=== PATIENT | male | born 1965 | race Caucasian/White ===

== ENCOUNTER 2020-02-27 16:01 | Inpatient (IN) | payer OTHER, SELFPAY ==
[2020-02-27 16:01] VITALS: BP 154/104; PULSE 124; RESP 18; TEMP 36.7; O2SAT 97; BMI 24.3
[2020-02-27 16:33] LABS: Absolute Lymphocyte Count 0.68 X10^3/uL (0.83-4.51); Basophil# 0.02 X10^3/uL; Basophil% 0.2 % (0-1); Eosinophil# 0.01 X10^3/uL; Eosinophils% 0.1 % (0-5); Hematocrit 50.8 % (40-54); Hemoglobin 17.1 g/dL (13.0-16.5); Lymphocyte # 0.68 X10^3/ul (4.0); Lymphocyte % 8.2 % (19-41); Mean Corp Hgb Conc 33.7 g/dL (32-36); Mean Corpuscular Hgb 34.5 pg (27.0-32.0); Mean Corpuscular Volume 102.6 fL (80-94); Mean Platelet Vol. 9.9 fl (6.2-12.0); Monocyte# 0.53 X10^3/uL; Monocyte% 6.4 % (0-10); NRBC Flagged by Analyzer 0 % (0-5); Neutrophil # 7.04 X10^3/uL (2.7-7.7); Neutrophil % 84.9 % (47-70); Platelet Count 302 K/mm3 (150-450); RBC Distribution Width CV 11.9 % (11.6-14.6); RBC Distribution Width SD 45.3 fl (35.1-43.9); Red Blood Count 4.95 M/mm3 (4.6-6.2); White Blood Count 8.3 K/mm3 (4.4-11.0)
[2020-02-27 16:44] LABS: Anion Gap 6 (5-15); BUN 15 mg/dL (7-18); BUN/Creat Ratio 16.6 RATIO (10-20); Calcium,Total 10.2 mg/dL (8.5-10.1); Chloride 102 mmol/L (98-107); EST Glomerular Filtration Rate 93 mL/min (>60); Est Glom Filt Rate - Afr Amer 113 mL/min (>60); Estimated Creatinine Clearance 93.83 ml/min; Glucose 117 mg/dL (74-106); Potassium 3.7 mmol/L (3.5-5.1); Sodium Level 134 mmol/L (136-145)
--- NOTE | 2020-02-27 17:06 | CT_ITS ---
STUDY: CT ABDOMEN AND PELVIS WITH CONTRAST REASON FOR EXAM: Male, 55 years old. LLQ ABD PAIN W/ N/V X 2 DAYS. FEVER, COUGH, SOB. RADIATION DOSAGE (If Supplied By Facility): CTDIvol = ( 10.925 ) mGy, DLP = ( 473.23 ) mGycm TECHNIQUE: Transaxial images were obtained from the dome of the diaphragm to the symphysis pubis without oral contrast. IV 100mL Isovue-370 was administered. Sagittal and coronal images were reconstructed. Individualized dose optimization techniques were used for this CT. COMPARISON: None. FINDINGS: There is minor interstitial thickening in both lung bases.. The visualized portions of the heart are within normal limits. Normal liver. Normal gallbladder and extrahepatic biliary system. Normal spleen. Normal pancreas. Normal bilateral adrenal glands. Normal right kidney. Normal left kidney. Diffusely distended fluid-filled stomach. Multiple distended loops of proximal and mid small bowel containing fluid with fecalization in the distal small bowel proximal to the transition point to more normal caliber loops of bowel in the right lower quadrant raising suspicion for bowel obstruction. Minor diverticular changes of the colon without evidence for acute diverticulitis.. No evidence for acute appendicitis Normal abdominal aorta. Normal inferior vena cava. Normal retroperitoneum. Nonspecific thickening of the younger of the bladder in association with mildly prominent prostate Normal abdominal wall. Lumbar spine demonstrates moderate spondylosis. CT/Abdomen/Pelvis W IV Cont ONLY IMPRESSION: Findings suspicious for distal small bowel obstruction. Recommend clinical correlation and follow-up Electronically Signed: Valentin Jordan MD at 18:16 EST , Service support ,
--- NOTE | 2020-02-27 17:07 | ED.DCSUM_ITS ---
History of Present Illness Chief Complaint: Abd Pain Informant: Patient Narrative: 55-year-old male presents with abdominal pain since yesterday. States it is worse in his left lower quadrant as well as upper epigastrium. States it is sharp and intermittent. States he has had a fever. Denies any nausea, vomiting, constipation, diarrhea, urinary symptoms. States he has been unable to eat over the past 2 days. Patient states that he does drink 6 beers per day. Past Medical History - Allergies and Home Meds Allergies/Adverse Reactions: Allergies No Known Allergies Allergy (Verified 02/27/20 16:01) Prior records reviewed: Yes Past Medical History: None Surgical History: - - intestine removal as a child Lives: With Family Smoking Status: Current every day smoker Alcohol: Heavy Drugs: None Review of Systems General: Reports: Fever. Denies: Chills, Sweats Eyes: Denies: Visual changes - bilaterally, Diplopia ENT: Denies: Rhinorrhea, Sore throat Cardiovascular: Denies: Chest pain, Palpitations Respiratory: Denies: Dyspnea, Cough, Dyspnea on exertion Gastrointestinal: Reports: Abdominal pain, Nausea. Denies: Vomiting, Diarrhea, Melena, Hematochezia Genitourinary: Denies: Dysuria, Hematuria, Frequency Musculoskeletal: Denies: Back pain, Extremity Pain Skin: Denies: Rash, Wounds Neurological: Denies: Headache, Weakness, Numbness Physical Exam Vital Signs/Narrative: Vital Signs Temp Pulse Resp BP Pulse Ox 02/27/20 16:01 98.1 F 124 H 18 154/104 H 97 Inital Vital Signs reviewed: Yes General: Well nourished, Well developed, No Acute Distress Head: Normocephalic, Atraumatic Eyes: Perrl, EOMI ENT: Moist mucous membranes, No rhinorrhea Neck: Supple, Nontender Cardiovascular: Regular rate, Regular rhythm, No murmurs Respiratory: No distress, CTA bilaterally, Chest nontender Abdomen: Soft, Nondistended, Normal bowel sounds, - - LLQ pain on palpation. Upper epigastric TTP. Back: Nontender, Normal Inspection Extremities: Nontender, No edema Skin: Normal color, No rash Neurological: Alert, Oriented x3, Cranial nerves II-XII grossly intact, Normal Strength, Normal Sensation Psychological: Normal affect, Normal Mood Diagnostic/Tx/Re-eval Clinical Impression(s) from Imaging Studies Abdomen/Pelvis CT 02/27/20 17:06 IMPRESSION: Findings suspicious for distal small bowel obstruction. Recommend clinical correlation and follow-up Electronically Signed: Valentin Jordan MD at 18:16 EST , Service support , KUB X-Ray 02/27/20 19:22 IMPRESSION: Nasogastric tube placement with tip in proximal gastric fundus Electronically Signed: Valentin Jordan MD at 19:56 EST , Service support , Laboratory Data 02/27/20 02/27/20 02/27/20 16:05 16:05 16:05 WBC 8.3 RBC 4.95 Hgb 17.1 H Hct 50.8 MCV 102.6 H MCH 34.5 H MCHC 33.7 RDW Std Deviation 45.3 H RDW Coeff of Dot 11.9 Plt Count 302 MPV 9.9 Immature Gran % (Auto) 0.200 Neut % (Auto) 84.9 H Lymph % (Auto) 8.2 L [place] % (Auto) 6.4 Eos % (Auto) 0.1 Baso % (Auto) 0.2 Absolute Neuts (auto) 7.0 Absolute Lymphs (auto) 0.68 L Nucleated RBC % 0 Sodium 134 L Potassium 3.7 Chloride 102 Carbon Dioxide 26.0 Anion Gap 6 BUN 15 Creatinine 0.90 Estim Creat Clear Calc 93.83 Est GFR (MDRD) Af Amer 113 Est GFR (MDRD) Non-Af 93 BUN/Creatinine Ratio 16.6 Glucose 117 H Calcium 10.2 H Lipase 62 L - Medical Decision Making Patient appears uncomfortable secondary to nausea. Lab work shows some volume depletion but otherwise no significant abnormalities. CT shows evidence of small bowel obstruction. Patient had been given pain medication, nausea medication, fluid bolus. Patient will have NG tube placed. X-ray will be done to ensure placement. Patient will be admitted to the hospitalist service. Spoke with surgeon who is agreeable with admission. Stable at time of admission. Impression: 1. SBO 2. Alcohol abuse ED Disposition - Plan for ED Patient: Disposition: Acute Care Hospital [facility]
[2020-02-27] MEDS: Ondansetron 4 MG/2 ML Vial IV (17:17)
[2020-02-27] MEDS: Morphine 4 MG/ML Syringe IV (17:18)
[2020-02-27] MEDS: 0.9% Normal Saline 1,000 ML 1000 ML IV (17:19)
[2020-02-27 17:24] VITALS: BP 140/97; PULSE 95; RESP 16; O2SAT 100
[2020-02-27 17:52] LABS: Lipase 62 U/L (73-393)
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
[2020-02-27 19:16] VITALS: BP 126/85; PULSE 110; RESP 20; O2SAT 99
--- NOTE | 2020-02-27 19:22 | RAD_ITS ---
STUDY: X-RAY - ABDOMEN/PELVIS REASON FOR EXAM: Male, 55 years old. NG PLACEMENT. TECHNIQUE: KUB COMPARISON: None. FINDINGS: Normal visualized lung bases. Mild diffuse distention of proximal small bowel and stomach There is no demonstrated free abdominal air. NG tube is noted with tip in proximal gastric fundus There is residual contrast seen within the renal collecting system bilaterally. Normal soft tissue structures. Normal visualized osseous structures. RAD/Abdomen Single View (Portable) IMPRESSION: Nasogastric tube placement with tip in proximal gastric fundus Electronically Signed: Valentin Jordan MD at 19:56 EST , Service support ,
[2020-02-27 20:05] VITALS: BMI 24.4
[2020-02-27 20:08] VITALS: BP 133/83; PULSE 89; RESP 16; TEMP 36.6; O2SAT 99
[2020-02-27 20:31] VITALS: BMI 23.6
[2020-02-27 20:37] VITALS: BP 131/98; PULSE 109; RESP 18; TEMP 36.6; O2SAT 98
[2020-02-27 21:08] LABS: Magnesium 2.1 mg/dL (1.6-2.6); Phosphorus 3.3 mg/dL (2.5-4.9)
[2020-02-27] MEDS: 0.9% Normal Saline 1,000 ML 125 ML IV (21:25)
[2020-02-27] MEDS: HYDROmorphone 0.5 MG/0.5 ML SYRINGE IV (21:25)
[2020-02-27] MEDS: 0.9% Saline Lock 10 ML Syringe IV (21:25)
[2020-02-27 22:59] VITALS: O2SAT 98
[2020-02-28 03:19] VITALS: BP 149/96; PULSE 109; RESP 18; TEMP 36.7; O2SAT 97
[2020-02-28] MEDS: 0.9% Normal Saline 1,000 ML 125 ML IV (03:23)
[2020-02-28 03:43] LABS: Bacteria 0 SEEN /hpf (None Seen); Mucous, Urine 0 SEEN /hpf (<or=2+); Red Blood Cells-Urine 0 SEEN /hpf (0-5)
[2020-02-28 03:54] LABS: Color, Urine Yellow (Yellow); Glucose, Dipstick Normal (Normal); Ketone-Dipstick 5 mg/dl (Negative); Leukocyte Esterase-Dipstick 25 /ul (Negative); Nitrite-Dipstick Negative (Negative); Occult Blood-Urine Negative /ul (Negative); Protein-Dipstick 30 mg/dl (Negative); Specific Gravity, Urine 1.015 (1.002-1.030); Urine Clarity Clear (Clear); Urine Urobilinogen Normal (Normal)
[2020-02-28 04:04] LABS: Urine Bilirubin Dipstick 1 mg/dL (Negative)
[2020-02-28 04:20] LABS: Amphetamine Urine VISTA POSITIVE (<1000 ng/mL); Barbiturate Urine VISTA NEGATIVE (< 200 ng/mL); Benzodiazepine Urine VISTA NEGATIVE (< 200 ng/mL); Cocaine Urine VISTA NEGATIVE (< 300 ng/mL); Ecstacy Urine VISTA POSITIVE (< 500 ng/mL); Methadone Urine VISTA NEGATIVE (< 300 ng/mL); PCP Urine VISTA NEGATIVE (< 25 ng/mL); THC Urine VISTA POSITIVE (< 50 ng/mL); Vista UDS pH Range 6
[2020-02-28 04:49] LABS: White Blood Cells 0-5 SEEN /hpf (0-5)
[2020-02-28 04:50] LABS: Squamous Epithelial Cells - UA 0-5 SEEN /hpf (0-5)
[2020-02-28] MEDS: HYDROmorphone 0.5 MG/0.5 ML SYRINGE IV (05:42)
[2020-02-28] MEDS: 0.9% Saline Lock 10 ML Syringe IV (05:42)
--- NOTE | 2020-02-28 05:55 | RAD_ITS ---
HISTORY: Small bowel obstruction. ADDITIONAL HISTORY: None. COMPARISON: 02/27/2020 EXAMINATION/TECHNIQUE: XR Abdomen 1 View Number of images including paperwork: 2 FINDINGS: FREE AIR: None detected. BOWEL GAS PATTERN: Multiple dilated loops of small bowel with mild decrease. Increasing gas in the colon. Findings suggest partial and/or resolving obstruction. CALCIFICATIONS: No definite urinary tract calculi. ORGANS: No evidence of organomegaly. Contrast noted within this and bladder which is trabeculated with a small diverticulum on the left. SOFT TISSUES: Unremarkable. BONES: No acute skeletal findings. Degenerative changes. LOWER CHEST: Unremarkable visible portions. DEVICES: Gastric tube tip and side-port of the stomach. RAD/Abdomen Single View (Portable) IMPRESSION: Small bowel obstruction. at 0547 Reported and signed by: Isa Dhaliwal MD Electronically Signed: Isa Dhaliwla MD at 5:46 EST Tel , Service support ,
[2020-02-28 07:27] LABS: Absolute Lymphocyte Count 0.75 X10^3/uL (0.83-4.51); Absolute Neutrophil Count 1.9 X10^3/uL (2.0-7.7); Basophil# 0.02 X10^3/uL; Basophil% 0.6 % (0-1); Eosinophil# 0.04 X10^3/uL; Eosinophils% 1.3 % (0-5); Hematocrit 47.2 % (40-54); Hemoglobin 15.9 g/dL (13.0-16.5); Lymphocyte # 0.75 X10^3/ul (4.0); Lymphocyte % 23.5 % (19-41); Mean Corp Hgb Conc 33.7 g/dL (32-36); Mean Corpuscular Hgb 35.3 pg (27.0-32.0); Mean Corpuscular Volume 104.7 fL (80-94); Mean Platelet Vol. 10.4 fl (6.2-12.0); Monocyte# 0.43 X10^3/uL; Monocyte% 13.5 % (0-10); NRBC Flagged by Analyzer 0 % (0-5); Neutrophil # 1.94 X10^3/uL (2.7-7.7); Neutrophil % 60.8 % (47-70); POSITIVE MORPHOLOGY YES; Platelet Count 268 K/mm3 (150-450); Red Blood Count 4.51 M/mm3 (4.6-6.2); White Blood Count 3.2 K/mm3 (4.4-11.0)
[2020-02-28 07:32] VITALS: O2SAT 96
[2020-02-28 07:39] LABS: ALB/GLOB Ratio 0.9 RATIO (0.9-2.4); AST(SGOT) 12 U/L (15-37); Alanine Aminotransfer ALT/SGPT 18 U/L (16-61); Albumin, Serum 3.6 g/dL (3.2-5.0); Alkaline Phosphatase 63 U/L (45-117); Anion Gap 6 (5-15); BUN 17 mg/dL (7-18); BUN/Creat Ratio 19.8 RATIO (10-20); Calcium,Total 8.7 mg/dL (8.5-10.1); Chloride 104 mmol/L (98-107); Creatinine, Serum 0.86 mg/dL (0.70-1.30); EST Glomerular Filtration Rate 99 mL/min (>60); Est Glom Filt Rate - Afr Amer 119 mL/min (>60); Estimated Creatinine Clearance 98.19 ml/min; Globulin 4.1 g/dL (2.2-4.2); Glucose 86 mg/dL (74-106); Potassium 3.8 mmol/L (3.5-5.1); Protein, Total 7.7 g/dL (6.4-8.2); Sodium Level 138 mmol/L (136-145)
[2020-02-28 07:44] LABS: Differential Indicated SCAN CRITERIA MET
[2020-02-28 08:28] VITALS: BP 130/93; PULSE 103; RESP 18; TEMP 37.2; O2SAT 98
[2020-02-28 08:39] LABS: Differential Comment SCANNED; Reactive Lymphocyte RARE
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
[2020-02-28 11:00] VITALS: BP 128/88; PULSE 74; RESP 18; TEMP 37.2; O2SAT 98
--- NOTE | 2020-02-28 11:36 | CM.UR ---
VENKATA OLIVER assessment: Face to Face with patient for initial transition planning/care coordination assessment. VENKATA OLIVER introduced self and role at [facility], pt voices understanding and consents to assessment at this time. Pt is A/Ox4 at this time and answers all questions appropriately at this time. Pt is lying in bed at this time. No distress at this time. Care providers, pharmacy, and demographics verified at this time. Presentation: Abd pain Admitting dx: SBO PCP: Dr. Jack Jessica Preferred Pharmacy: [facility]. [facility] for short term or ones needed quickly. Insurance: None currently unemployed. Wants [facility] alerted for coverage. Pres[facility] Benefit: [facility] through [facility]. Living Will/HPOA: None, declines information at this time. LNOK: Fiance Living Arrangements: Pt states lives alone in 2 story home and states no concerns at home at this time. Pt states is independent with ADL's. Transportation: Pt states drives self and states no transportation concerns at this time. DME: None. Pt states no need for any DME at this time. States if needs [facility]--[facility] HHC/SNF: Pt states no hx of HHC or SNF in the past. Goal: Home Plan: Home Rose Mary Dalton RN, CCM
--- NOTE | 2020-02-28 12:51 | CM.UR ---
Alerted Isa in bed control of vet?s admission to [facility] for SBO. [facility] time to [facility] as well as to the transfer center (bed control). The vet is currently unemployed and only has their [facility] coverage at this time. Rose Mary Dalton RN, CCM.
--- NOTE | 2020-02-28 14:03 | DCINST_ITS ---
- Discharge Diagnoses Current Active Problems: Current Active and Chronic Problems Small bowel obstruction (Acute) Tobacco use (Chronic) Seizure disorder (Chronic) Alcohol abuse (Chronic) You will use the following diet at home:: No restrictions Your food should be the consistency of: Regular Your liquids should be the consistency of: Regular/Thin Discharge Activity: Return to Normal Activity Weight Bearing Status: Full weight bearing Allergies/Adverse Reactions: Allergies No Known Allergies Allergy (Verified 02/27/20 16:01) Medications to take at Discharge NK 02/27/20 Primary Care Physician: [facility] [Primary Care Provider] - Please follow up with your Primary Care Physician in: as scheduled Test Results: Test results from this visit will be discussed in further detail at your follow- up appointment, if applicable.
[2020-02-28 15:08] VITALS: BP 138/70; PULSE 76; RESP 18; TEMP 37; O2SAT 98
--- NOTE | 2020-02-28 15:58 | DS.PCM_ITS ---
Discharge Date and Diagnosis - Problem List Patient Problems: Active and Suspected Problems Small bowel obstruction (Acute) Date of Admission: 02/27/20 Date of Discharge: 02/28/20 - Primary Discharge Diagnosis Acute Problems: Active Problems #1 small bowel obstruction (Acute)-resolved at discharge #2 suspected intra-abdominal adhesions from previous surgery - Secondary Discharge Diagnosis Chronic Problems: Chronic Problems Tobacco use (Chronic) Seizure disorder (Chronic) Alcohol abuse (Chronic) Hospital Course and Treatment Operations: None Procedures: None Summary of Care Provided: The patient is a 55 year old M who was seen in the emergency room at [facility] with chief complaint of abdominal pain x24 hours. Patient stated he had left lower quadrant as well as epigastric abdominal pain-he described this as sharp and intermittent. Work-up in the emergency room revealed the patient to have a distal small bowel obstruction on a CT of his abdomen and pelvis, patient's lab was unremarkable. An NG was inserted in the ER, general surgery was contacted and agreed to see the patient in consultation and the patient was admitted to [place] [id number]. NG suction was continued for a time but the patient had a large bowel movement and his abdominal distention resolved, his NG was taken out he was seen in consultation by general surgery who felt that he could go home. On 02/28/2020, patient was seen and examined: On examination he appeared in good health and spirits. Vital signs as documented. Skin warm and dry and without overt rashes. Neck without JVD, neck was supple, trachea midline, thyroid was normal. Lungs clear bilaterally, normal air movement was noted. Heart exam notable for regular rhythm, normal sounds and absence of murmurs, rubs or gallops. Abdomen unremarkable and without evidence of organomegaly, masses, or abdominal aortic enlargement. Bowel sounds are present, abdomen is not distended. Extremities nonedematous, no cyanosis was noted, no clubbing was noted. Neuro: Cranial nerves II through XII are grossly intact, no focal motor deficits were noted, sensation to light touch and pinprick intact, motor exam 5/5 throughout. Psych: Patient is alert and oriented x3, he does not appear anxious or depressed, he does not appear agitated. Patient was discharged home in stable condition on 02/28/2020. Patient Problems: Active and Suspected Problems Small bowel obstruction (Acute) - Physical Exam Vitals/I&O's: Vital Signs Temp Pulse Resp BP Pulse Ox 98.6 F 76 18 138/70 H 98 02/28/20 15:08 02/28/20 15:08 02/28/20 15:08 02/28/20 15:08 02/28/20 15:08 Oxygen Delivery Method Room Air Weight: 72.5 kg Body Mass Index (BMI) 23.6 Intake and Output for Last 24 Hours 02/26/20 02/27/20 02/28/20 23:59 23:59 23:59 Intake Total 1200 / 1200 2920.83 / 2920.83 Output Total 600 / 600 Balance 1200 / 1200 2320.83 / 2320.83 Laboratory Results 02/27/20 16:05: WBC 8.3, RBC 4.95, Hgb 17.1 H, Hct 50.8, MCV 102.6 H, MCH 34.5 H , MCHC 33.7, RDW Std Deviation 45.3 H, RDW Coeff of Dot 11.9, Plt Count 302, MPV 9.9, Immature Gran % (Auto) 0.200, Neut % (Auto) 84.9 H, Lymph % (Auto) 8.2 L, [place] % (Auto) 6.4, Eos % (Auto) 0.1, Baso % (Auto) 0.2, Absolute Neuts (auto) 7.0, Absolute Lymphs (auto) 0.68 L, Nucleated RBC % 0 02/27/20 16:05: Sodium 134 L, Potassium 3.7, Chloride 102, Carbon Dioxide 26.0, Anion Gap 6, BUN 15, Creatinine 0.90, Estim Creat Clear Calc 93.83, Est GFR (MDRD) Af Amer 113, Est GFR (MDRD) Non-Af 93, BUN/Creatinine Ratio 16.6, Glucose 117 H, Calcium 10.2 H 02/27/20 16:05: Lipase 62 L 02/27/20 16:05: Phosphorus 3.3, Magnesium 2.1 02/27/20 21:07: Ethyl Alcohol 4.0 02/28/20 03:30: Urine Color Yellow, Urine Clarity Clear, Urine pH 5.0, Ur Specific [place] 1.015, Urine Protein 30 H, Urine Glucose (UA) Normal, Urine Ketones 5 H, Urine Occult Blood Negative, Urine Nitrite Negative, Urine Bilirubin 1 H, Urine Urobilinogen Normal, Ur Leukocyte Esterase 25 H, Urine RBC 0 SEEN, Urine WBC 0-5 SEEN, Ur Squamous Epith Cells 0-5 SEEN, Urine Bacteria 0 SEEN, Urine Mucus 0 SEEN 02/28/20 03:30: Urine Opiates Screen POSITIVE H, Urine Methadone Screen NEGATIVE, Ur Barbiturates Screen NEGATIVE, Ur Phencyclidine Scrn NEGATIVE, Ur Amphetamines Screen POSITIVE H, U Methamphetamin-MDMA POSITIVE H, U Benzodiazepines Scrn NEGATIVE, Urine Cocaine Screen NEGATIVE, U Cannabinoids Screen POSITIVE H, Ur Drug Screen Comment 02/28/20 06:40: WBC 3.2 L, RBC 4.51 L, Hgb 15.9, Hct 47.2, MCV 104.7 H, MCH 35.3 H, MCHC 33.7, RDW Std Deviation 47.0 H, RDW Coeff of Dot 12.0, Plt Count 268, MPV 10.4, Immature Gran % (Auto) 0.300, Neut % (Auto) 60.8, Lymph % (Auto) 23.5, [place] % (Auto) 13.5 H, Eos % (Auto) 1.3, Baso % (Auto) 0.6, Absolute Neuts (auto) 1.9 L, Absolute Lymphs (auto) 0.75 L, Nucleated RBC % 0, Differential Comment SCANNED, Reactive Lymphocytes RARE 02/28/20 06:40: Sodium 138, Potassium 3.8, Chloride 104, Carbon Dioxide 28.0, Anion Gap 6, BUN 17, Creatinine 0.86, Estim Creat Clear Calc 98.19, Est GFR (MDRD) Af Amer 119, Est GFR (MDRD) Non-Af 99, BUN/Creatinine Ratio 19.8, Glucose 86, Calcium 8.7, Total Bilirubin 0.60, AST 12 L, ALT 18, Alkaline Phosphatase 63, Total Protein 7.7, Albumin 3.6, Globulin 4.1, Albumin/Globulin Ratio 0.9 Discharge Activity: Return to Normal Activity Weight Bearing Status: Full weight bearing Home Medications: Medications to take at Discharge NK 02/27/20 [facility] - Please follow up with your Primary Care Physician in: as scheduled Disposition: Home Minutes spent on discharge:: 31 Patient Condition:: Stable Medical Necessity - Tobacco Use Smoking Status: Current every day smoker Tobacco Use: Cigarettes Meaningful Use Info Meaningful Use Diagnoses (Choose all that apply): None applicable Inpatient E&M: 72316 Disch Hosp
== END 2020-02-28 15:13 | disposition home or self-care (01) | DRG 390 ==
LOC: ED 19:20 → MS3 20:02
PROVIDERS: Admitting Provider Family Medicine; Emergency Provider Emergency Medicine; Referring Provider Family Medicine; Visit Provider Internal Medicine
DX: K56.609 Unspecified intestinal obstruction, unspecified as to partial versus complete obstruction (principal); G40.909 Epilepsy, unspecified, not intractable, without status epilepticus; F17.210 Nicotine dependence, cigarettes, uncomplicated; F10.20 Alcohol dependence, uncomplicated; Y90.9 Presence of alcohol in blood, level not specified; K66.0 Peritoneal adhesions (postprocedural) (postinfection)
CPT/HCPCS: 36415; 74018; 74177; 80048; 80053; 80307; 80320; 81001; 83690; 83735; 84100; 85025; 99251; 99285; 99406; J7030; Q9967; A4216; G0463; G0480; J2405

== ENCOUNTER 2022-11-09 08:21 | Inpatient (IN) | payer MEDICAID, SELFPAY ==
[2022-11-09] VITALS (9 sets, daily range): BP systolic 130–148; BP diastolic 72–94; PULSE 64–109; RESP 15–18; TEMP 35.7–36.7; O2SAT 98–100; BMI 26.6; BMI 24.6
--- NOTE | 2022-11-09 08:35 | EX.ED.SAOD ---
HPI History of Present Illness Chief Complaint: Substance Abuse Informant: patient Narrative Narrative: Presents for assistance with alcohol and drug abuse. Denies suicidal homicidal ideations. He does drink alcohol for years states he drinks a sixpack a day present throughout the day. Denies waking up with tremors or nausea or vomiting. He states he has cravings and drinks that habit. He smokes meth and opiates together. He is having increasing use over the past month. Multiple times a day. Denies abdominal cramping sweats. States he gets agitated when he does not smoke. Denies hallucinations. Denies medical history records notes seizure disorder bowel obstruction. Denies withdrawal seizures from alcohol in the past. He states he does not take any medications. He states he has not sought help. He states he wants to go through the program for assistance to transition as an outpatient care. He states he has not sought help in the past. Reports his last drink was few hours ago. [facility] Medications NK 02/27/20 [History Last Taken Unknown] Allergy/AdvReac Type Severity Reaction Status Date / Time No Known Allergies Allergy Verified 11/09/22 08:22 Surgical History History of bowel resection Social History Smoking Status: Current every day smoker tobacco type: cigarettes Smoking packs per day: 0.5 Smoking cigarettes per day: 10.0 alcohol intake: current Previous attempts at quittin details: on and off substance use type: marijuana, heroin and methamphetamine ROS ROS ED Constitutional Constitutional ED: Denies chills, fever(s) or sweats Eyes Eyes: Denies change in vision ENT ENT ED: Denies dysphagia or sore throat Cardiovascular Cardiovascular: Denies chest pain, leg edema, palpitations or racing heartbeat Respiratory/Chest Respiratory/Chest: Denies cough, dyspnea or dyspnea on exertion Gastrointestinal Gastrointestinal: Denies abdominal pain, diarrhea, nausea or vomiting Genitourinary Genitourinary ED: Denies dysuria, hematuria or urinary frequency Musculoskeletal Musculoskeletal: Denies back pain, extremity pain or neck pain Integumentary Denies rash or wounds Neurologic Neurologic: Denies headache(s), paresthesias or weakness Psychiatric Psychiatric: Denies depression, suicidal ideation or suicidal thoughts EXAM Physical Exam Const Vital Signs: 11/09/22 08:22 11/09/22 10:19 Temperature 98.1 F 97.6 F L Temperature Source Temporal Oral Pulse Rate 109 H 89 Respiratory Rate 16 15 Blood Pressure 148/94 H 134/72 H Blood Pressure Mean 112 92 Pulse Ox 98 98 Oxygen Delivery Method Room Air Room Air Positive well nourished and well developed General Appearance ED: well developed and NAD HEENT Reports moist mucous membranes normocephalic and atraumatic Eyes PERRL, EOMs intact bilaterally and conjunctivae normal General Eye ED: Yes normal appearance of both eyes Neck no lymphadenopathy and supple General: Negative for tenderness Chest Wall Chest: Negative for tenderness Resp normal respiratory effort and normal air movement Effort and Inspection: symmetric chest movement; Negative for respiratory distress Cardio regular rate, regular rhythm and no murmurs Peripheral Pulses: pulses 2+ throughout GI normal to inspection, nondistended, normoactive bowel sounds and non-tender Palpation: Negative for guarding or rebound tenderness present Back/Spine no CVA tenderness and no thoracic nor lumbar tenderness Extremity normal to inspection General Extremety ED: Negative for edema or tenderness General Extremity: Negative for edema Neuro oriented x3 and no sensory deficits noted Sensorium / Orientation: awake and alert Skin no rashes or lesions noted and no wounds MDM MDM MDM Narrative Medical decision making narrative: Interventions / MDM: Differential diagnosis: Alcohol dependence, polysubstance abuse Diagnosis considered but do not suspect: N/A My EKG interpretation: N/A Imaging independently reviewed and interpreted by myself: N/A External documents reviewed: N/A Test considered but not ordered:N/A ED course: Patient nontoxic denies any symptoms currently. Denies suicidal homicidal ideations. Will obtain medical labs. Patient is looking for assistance. Will discuss with hospitalist service. Discussed with Dr. Campbell for admission. Re-evaluation: stable Disposition discussed with patient/family/significant other: Patient Case discussed with consulting clinician: hospitalist This note was generated with [employer] dictation software. It may contain incorrect words, spelling, and punctuation that were not noted in checking the note before signing. Lab Data Attestation: I reviewed the patient's lab results. Labs: Laboratory Results - last 24 hr 11/09/22 08:45 WBC 7.7 RBC 4.14 L Hgb 12.9 L Hct 41.3 MCV 99.8 H MCH 31.2 MCHC 31.2 L RDW Std Deviation 53.6 H RDW Coeff of Dot 14.6 Plt Count 341 MPV 9.3 Sodium 138 Potassium 3.6 Chloride 104 Carbon Dioxide 27.0 Anion Gap 7 BUN 13 Creatinine 1.11 Estim Creat Clear Calc 74.31 Est GFR (MDRD) Af Amer 88 Est GFR (MDRD) Non-Af 73 BUN/Creatinine Ratio 11.7 Glucose 104 Calcium 9.5 Total Bilirubin 0.30 AST 14 L ALT 16 Alkaline Phosphatase 94 Total Protein 8.4 H Albumin 3.6 Globulin 4.8 H Albumin/Globulin Ratio 0.8 L Ethyl Alcohol < 3.0 Discharge Plan Dx/Rx/DC Orders Clinical Impression: Alcohol dependence, Polysubstance abuse Disposition Disposition: Acute Care Hospital [facility] Discharge Date/Time: 11/09/22 10:36
[2022-11-09 08:55] LABS: Hematocrit 41.3 % (40-54); Hemoglobin 12.9 g/dL (13.0-16.5); Mean Corp Hgb Conc 31.2 g/dL (32-36); Mean Corpuscular Hgb 31.2 pg (27.0-32.0); Mean Corpuscular Volume 99.8 fL (80-94); Mean Platelet Vol. 9.3 fl (6.2-12.0); Platelet Count 341 K/mm3 (150-450); RBC Distribution Width CV 14.6 % (11.6-14.6); RBC Distribution Width SD 53.6 fl (35.1-43.9); Red Blood Count 4.14 M/mm3 (4.6-6.2); White Blood Count 7.7 K/mm3 (4.4-11.0)
[2022-11-09 09:12] LABS: ALB/GLOB Ratio 0.8 RATIO (0.9-2.4); AST(SGOT) 14 U/L (15-37); Alanine Aminotransfer ALT/SGPT 16 U/L (16-61); Albumin, Serum 3.6 g/dL (3.2-5.0); Alkaline Phosphatase 94 U/L (45-117); Anion Gap 7 (5-15); BUN 13 mg/dL (7-18); BUN/Creat Ratio 11.7 RATIO (10-20); Calcium,Total 9.5 mg/dL (8.5-10.1); Chloride 104 mmol/L (98-107); Creatinine, Serum 1.11 mg/dL (0.70-1.30); EST Glomerular Filtration Rate 73 mL/min (>60); Est Glom Filt Rate - Afr Amer 88 mL/min (>60); Estimated Creatinine Clearance 74.31 ml/min; Globulin 4.8 g/dL (2.2-4.2); Glucose 104 mg/dL (74-106); Potassium 3.6 mmol/L (3.5-5.1); Protein, Total 8.4 g/dL (6.4-8.2); Sodium Level 138 mmol/L (136-145)
[2022-11-09 09:24] LABS: Alcohol, Blood (Medical)-Serum < 3.0 mg/dL
--- NOTE | 2022-11-09 10:11 | NURSING ---
DR LADI WEISS
--- NOTE | 2022-11-09 10:31 | NURSING ---
123 MED SURG TERELETSKY POLYSUBSTANCE ABUSE, ALCOHOL DEPENDENCE
[2022-11-09] MEDS: Phenobarbital 32.4 MG Tablet PO ×2 (12:34→18:25)
--- NOTE | 2022-11-09 18:02 | PCM.HP.STD ---
HPI - General General Date of Admission: 11/09/22 Date of Service: 11/09/22 Chief Complaint: Desiring services for opioid and alcohol detox HPI Narrative ABI HUTCHINS, is a 57 M who presents to the emergency room at [facility] today desiring services for detox from opioids and alcohol, patient's last drink with this morning, the last time he used any opiates was yesterday, he uses fentanyl (smokes it) and sometimes smokes methamphetamines. Patient drinks approximately 1 sixpack of but ice beer daily, patient denies going through detox before. At the time my examination, patient has no complaints of any tremor or nervousness. Labs obtained in the emergency room showed a normal CBC except for hemoglobin of 12.9, chemistry profile was unremarkable, patient's ethyl alcohol level was less than 3 Patient will be admitted to PCU for acute opioid withdrawal/alcohol withdrawal-I have decided not to put the patient on a tapering dose of phenobarb per protocol, I feel that he would be better served to use a lower dose of phenobarbital and taper this lower dose. Patient will be seen by addiction psychiatric social worker supervisor, he will be placed on Subutex. PENDING SALE TO [facility] Medical History no medical history Home Medications NK 02/27/20 [History Last Taken Unknown] Allergy/AdvReac Type Severity Reaction Status Date / Time No Known Allergies Allergy Verified 11/09/22 08:22 Family History no significant family his Surgical History History of bowel resection Social History Smoking Status: Current every day smoker tobacco type: cigarettes Smoking packs per day: 0.5 Smoking cigarettes per day: 10.0 alcohol intake: current Previous attempts at quittin details: on and off substance use type: marijuana, heroin and methamphetamine ROS Constitutional Constitutional: Denies anorexia, change in weight, chills, fatigue, fever(s), malaise, night sweats or weakness Eyes Eyes: Denies blurry vision, change in vision, discharge from eye(s) or eye pain Cardiovascular Cardiovascular: Denies chest pain, claudication, dyspnea on exertion, edema, lightheadedness or palpitations Respiratory/Chest Respiratory/Chest: Denies cough, hemoptysis, productive cough, shortness of breath at rest or shortness of breath with exertion Gastrointestinal Gastrointestinal: Denies abdominal pain, constipation, diarrhea, hematemesis, hematochezia, melena, nausea or vomiting Genitourinary Genitourinary: Denies dysuria, hematuria, urinary frequency, urinary hesitancy, urinary incontinence or urinary urgency Musculoskeletal Musculoskeletal: Denies back pain, joint pain, joint stiffness, joint swelling, myalgias or neck pain Neurologic Neurologic: Denies abnormal gait, abnormal speech, confusion, disequilibrium, dizziness, focal weakness, headache(s), loss of vision, numbness, other visual disturbances, paresthesias, syncope or tingling Psychiatric Psychiatric: Denies anxiety, cognitive impairment, depression, irritability, mood swings or suicidal ideation Endocrine Endocrinology: Denies change in body appearance, cold intolerance, excessive sweating, heat intolerance, polydipsia or polyuria Hematologic/Lymphatic Hematologic/Lymphatic: Denies none, anemia, easy bleeding, easy bruising or lymphadenopathy Allergic/Immunologic Allergic/Immunologic: Denies rhinitis, urticaria, eczemia or asthma Vital Signs Vital Signs Vital Signs: 11/09/22 08:22 11/09/22 10:19 11/09/22 11:03 Temperature 98.1 F 97.6 F L 97.7 F L Temperature Source Temporal Oral Oral Pulse Rate 109 H 89 89 Respiratory Rate 16 15 16 Respiratory Effort Respiratory Depth Respiratory Pattern Blood Pressure 148/94 H 134/72 H 130/89 H Blood Pressure Mean 112 92 102 Blood Pressure Source Monitor Blood Pressure Position Supine Blood Pressure Location Left Arm Pulse Ox 98 98 98 Oxygen Delivery Method Room Air Room Air Room Air 11/09/22 11:25 11/09/22 11:30 11/09/22 15:45 Temperature 97.5 F L Temperature Source Oral Oral Pulse Rate 64 84 Respiratory Rate 16 16 Respiratory Effort Normal Non-Labored Respiratory Depth Normal Respiratory Pattern Normal Blood Pressure 145/86 H Blood Pressure Mean 105 Blood Pressure Source Monitor Blood Pressure Position Supine Blood Pressure Location Left Arm Pulse Ox 98 98 Oxygen Delivery Method Room Air Room Air Room Air 11/09/22 15:45 Temperature Temperature Source Pulse Rate Respiratory Rate Respiratory Effort Normal Non-Labored Respiratory Depth Normal Respiratory Pattern Normal Blood Pressure Blood Pressure Mean Blood Pressure Source Blood Pressure Position Blood Pressure Location Pulse Ox Oxygen Delivery Method Room Air Weight Weight: 75.6 kg Body Mass Index (BMI) 24.6 Physical Exam Const alert, oriented x3, no apparent distress and average body habitus General Appearance: cooperative, well kempt and well developed Orientation / Consciousness: awake, oriented to person, oriented to place and oriented to time HEENT normocephalic, head/scalp atraumatic, hearing grossly normal bilaterally and moist oral mucous membranes Eyes PERRL, EOMs intact bilaterally and conjunctivae normal Neck supple, no JVD, thyroid normal and no carotid bruits General: trachea midline Resp normal respiratory effort, no retractions, no use of accessory muscles and clear to auscultation bilaterally Auscultation: Negative for rales, rhonchi or wheezes Cardio regular rate, regular rhythm, S1 normal heart sound, S2 normal heart sound, no murmurs, no rub and no gallops GI normal to inspection, nondistended, normoactive bowel sounds, soft to palpation, non-tender and non-distended Extremity no clubbing, cyanosis or edema Skin no rashes or lesions noted General Skin Exam: no breakdown Neuro oriented x3, CN's II-XII intact bilaterally, moves all extremities, no focal motor deficits and no sensory deficits noted Sensorium / Orientation: awake, alert, oriented to person, oriented to place and oriented to time Speech: speech normal Psych affect normal Results Lab / Micro Data 11/09/22 08:45 11/09/22 08:45 Labs: Laboratory Results - last 24 hr 11/09/22 08:45: WBC 7.7, RBC 4.14 L, Hgb 12.9 L, Hct 41.3, MCV 99.8 H, MCH 31.2, MCHC 31.2 L, RDW Std Deviation 53.6 H, RDW Coeff of Dot 14.6, Plt Count 341, MPV 9.3, Sodium 138, Potassium 3.6, Chloride 104, Carbon Dioxide 27.0, Anion Gap 7, BUN 13, Creatinine 1.11, Estim Creat Clear Calc 74.31, Est GFR (MDRD) Af Amer 88, Est GFR (MDRD) Non-Af 73, BUN/Creatinine Ratio 11.7, Glucose 104, Calcium 9.5, Total Bilirubin 0.30, AST 14 L, ALT 16, Alkaline Phosphatase 94, Total Protein 8.4 H, Albumin 3.6, Globulin 4.8 H, Albumin/Globulin Ratio 0.8 L, Ethyl Alcohol < 3.0 Assessment & Plan Assessment/Plan (1) Alcohol dependence: PLAN: Plan 1. Acute opiate withdrawal-again patient will be maintained on Subutex, he will be seen by addiction psychiatric social worker supervisor, orders were entered using the opiate detox order set #2 acute alcohol withdrawal-patient will be placed on programmed phenobarbital at a lower dose then the tapering schedule that is usually used at the hospital here, I think it is less likely he will have serious alcohol withdrawal due to the amount of alcohol he admits to using. #3 polysubstance abuse-complicates care, medical course, recovery, and prognosis Total clinical time spent by myself addressing the patient's medical issues, reviewing all of his data, and collaborating with patient's care team: 55 minutes Charges/Coding Visit Charges Inpatient E&M: 93986 Init Hosp L2
[2022-11-10] MEDS: Phenobarbital 32.4 MG Tablet PO ×4 (00:05→21:35)
[2022-11-10 00:13] VITALS: BP 141/88; PULSE 83; RESP 16; TEMP 36.3; O2SAT 98
[2022-11-10 06:15] VITALS: BP 129/91; PULSE 100; RESP 16; TEMP 36.4; O2SAT 96
[2022-11-10 06:43] VITALS: BP 129/91; PULSE 100; RESP 16; TEMP 36.4; O2SAT 96
[2022-11-10] MEDS: Folic Acid 1 MG Tablet PO (08:06)
[2022-11-10] MEDS: Thiamine Hydrochloride 100 MG Tablet PO (08:06)
[2022-11-10] MEDS: Ibuprofen 600 MG Tablet PO (08:17)
[2022-11-10] MEDS: Acetaminophen 500 MG Tablet PO (08:17)
[2022-11-10 12:19] VITALS: BP 121/79; PULSE 81; RESP 17; TEMP 36.6; O2SAT 97
[2022-11-10 16:25] VITALS: BP 123/91; PULSE 96; RESP 18; TEMP 36.6; O2SAT 100
--- NOTE | 2022-11-10 18:15 | PN.HOSP_ITS ---
Reason for Visit Reason for Visit: Diagnoses Alcohol dependence, uncomplicated (11/09/22) Subjective Subjective Patient was seen and examined today, nursing states that he has been incontinent in bed and he has been sleepy, I made the decision to stop his phenobarbital for now I will restart it at a lower dose tonight. The plan is for the patient to go to an inpatient detox center at the time of discharge from the hospital. Objective Data Objective Data Vital Signs: Vital Signs Temp Pulse Resp BP Pulse Ox O2 Del Method 97.9 F 96 18 123/91 H 100 Room Air 11/10/22 16:25 11/10/22 16:25 11/10/22 16:25 11/10/22 16:25 11/10/22 16:25 11/10/22 16:25 Oxygen Delivery Method Room Air Weight: 75.6 kg Body Mass Index (BMI) 24.6 Intake & Output: Intake and Output for Last 24 Hours 11/08/22 11/09/22 11/10/22 23:59 23:59 23:59 Intake Total 150 / 150 240 / 240 Balance 150 / 150 240 / 240 Lab / Micro Data 11/09/22 08:45 11/09/22 08:45 Physical Exam Narrative Somnolent, oriented x3, no apparent distress and average body habitus General Appearance: cooperative, well kempt and well developed Orientation / Consciousness: oriented to person, oriented to place and oriented to time HEENT normocephalic, head/scalp atraumatic, hearing grossly normal bilaterally and moist oral mucous membranes Eyes PERRL, EOMs intact bilaterally and conjunctivae normal Neck supple, no JVD, thyroid normal and no carotid bruits General: trachea midline Resp normal respiratory effort, no retractions, no use of accessory muscles and clear to auscultation bilaterally Auscultation: Negative for rales, rhonchi or wheezes Cardio regular rate, regular rhythm, S1 normal heart sound, S2 normal heart sound, no murmurs, no rub and no gallops GI normal to inspection, nondistended, normoactive bowel sounds, soft to palpation, non-tender and non-distended Extremity no clubbing, cyanosis or edema Skin no rashes or lesions noted General Skin Exam: no breakdown Neuro oriented x3, CN's II-XII intact bilaterally, moves all extremities, no focal motor deficits and no sensory deficits noted Sensorium / Orientation: Somnolent, oriented to person, oriented to place and or iented to time Speech: speech normal Psych affect flat, patient is somewhat somnolent Assessment & Plan Assessment/Plan (1) Alcohol abuse: (2) Alcohol dependence: PLAN: Plan 1. Acute opiate withdrawal-again patient will be maintained on Subutex #2 acute alcohol withdrawal-I have elected to reduce the patient's phenobarbital due to his somnolence today, I will restart it this evening #3 polysubstance abuse-complicates care, medical course, recovery, and prognosis Total clinical time spent by myself addressing the patient's medical issues, reviewing all of his data, and collaborating with patient's care team: 35 minutes Charges/Coding Visit Charges Inpatient E&M: 82651 Subs Hosp L2
[2022-11-10 20:00] VITALS: BP 134/84; PULSE 84; RESP 16; TEMP 36.8; O2SAT 97
[2022-11-11] VITALS: BP 134/76; PULSE 86; RESP 16; TEMP 36.1; O2SAT 98
[2022-11-11 04:00] VITALS: BP 122/81; PULSE 83; RESP 16; TEMP 36.2; O2SAT 97
[2022-11-11 09:49] VITALS: BP 121/84; PULSE 86; RESP 16; TEMP 36.5; O2SAT 97
[2022-11-11] MEDS: Thiamine Hydrochloride 100 MG Tablet PO (09:57)
[2022-11-11] MEDS: Phenobarbital 32.4 MG Tablet PO (09:57)
[2022-11-11] MEDS: Folic Acid 1 MG Tablet PO (09:57)
[2022-11-11 17:00] VITALS: BP 119/76; PULSE 84; RESP 16; TEMP 36.7; O2SAT 98
--- NOTE | 2022-11-11 18:39 | PCM.PN.HOSP ---
Reason for Visit Reason for Visit: Diagnoses Alcohol abuse, uncomplicated (11/09/22) Alcohol dependence, uncomplicated (11/09/22) Subjective Subjective Patient was seen and examined today, he appears more alert I have elected to stop his phenobarbital altogether and observe him for any signs of alcohol withdrawal. Patient will be going to an inpatient detox facility on Sunday. Objective Data Objective Data Vital Signs: Vital Signs Temp Pulse Resp BP Pulse Ox O2 Del Method 98.0 F 84 16 119/76 98 Room Air 11/11/22 17:00 11/11/22 17:00 11/11/22 17:00 11/11/22 17:00 11/11/22 17:00 11/11/22 17:00 Oxygen Delivery Method Room Air Weight: 75.6 kg Body Mass Index (BMI) 24.6 Intake & Output: Intake and Output for Last 24 Hours 11/09/22 11/10/22 11/11/22 23:59 23:59 23:59 Intake Total 150 / 150 490 / 490 Balance 150 / 150 490 / 490 Lab / Micro Data 11/09/22 08:45 11/09/22 08:45 Physical Exam Const alert, oriented x3, no apparent distress and healthy appearing General Appearance: cooperative, well kempt and well developed Orientation / Consciousness: awake, oriented to person, oriented to place and oriented to time HEENT normocephalic and moist oral mucous membranes Eyes PERRL, EOMs intact bilaterally and conjunctivae normal Neck supple, no JVD, thyroid normal and no carotid bruits General: trachea midline Resp normal respiratory effort and clear to auscultation bilaterally Auscultation: Negative for rales, rhonchi or wheezes Cardio regular rate, regular rhythm, no murmurs, no rub and no gallops GI normal to inspection, nondistended, normoactive bowel sounds, soft to palpation, non-tender and non-distended Extremity no clubbing, cyanosis or edema Skin no rashes or lesions noted General Skin Exam: no breakdown Neuro oriented x3, CN's II-XII intact bilaterally, no focal motor deficits and no sensory deficits noted Sensorium / Orientation: awake and alert Speech: speech normal Psych affect normal Assessment & Plan Assessment/Plan (1) Polysubstance abuse: (2) Alcohol abuse: (3) Alcohol dependence: PLAN: Plan 1. Acute opiate withdrawal-again patient will be maintained on Subutex #2 acute alcohol withdrawal-I have elected to stop the patient's phenobarbital at this time #3 polysubstance abuse-complicates care, medical course, recovery, and prognosis Total clinical time spent by myself addressing the patient's medical issues, reviewing all of his data, and collaborating with patient's care team: 25 minutes Charges/Coding Visit Charges Inpatient E&M: 41869 Subs Hosp L1
[2022-11-11 21:00] VITALS: BP 113/71; PULSE 999; RESP 18; TEMP 37.1; O2SAT 97
[2022-11-11 21:10] VITALS: BP 113/71; PULSE 99; RESP 18; TEMP 37.1; O2SAT 97
[2022-11-12 01:00] VITALS: BP 120/86; PULSE 100; RESP 16; TEMP 36.9; O2SAT 98
[2022-11-12 03:19] VITALS: BP 129/80; PULSE 97; RESP 16; TEMP 37.1; O2SAT 97
[2022-11-12 05:00] VITALS: BP 124/86; PULSE 85; RESP 16; TEMP 36.5; O2SAT 99
[2022-11-12 08:25] VITALS: BP 126/86; PULSE 76; RESP 16; TEMP 36.1; O2SAT 98
--- NOTE | 2022-11-12 09:32 | PCM.PN.HOSP ---
Reason for Visit Reason for Visit: Diagnoses Alcohol abuse, uncomplicated (11/09/22) Alcohol dependence, uncomplicated (11/09/22) Other psychoactive substance abuse, uncomplicated (11/09/22) Subjective Subjective Patient was seen and examined today, he does not complain of any nervousness or tremor, he has been off phenobarbital since yesterday. Objective Data Objective Data Vital Signs: Vital Signs Temp Pulse Resp BP Pulse Ox O2 Del Method 97.0 F L 76 16 126/86 H 98 Room Air 11/12/22 08:25 11/12/22 08:25 11/12/22 08:25 11/12/22 08:25 11/12/22 08:25 11/12/22 08:25 Oxygen Delivery Method Room Air Weight: 75.6 kg Body Mass Index (BMI) 24.6 Intake & Output: Intake and Output for Last 24 Hours 11/10/22 11/11/22 11/12/22 23:59 23:59 23:59 Intake Total 490 / 490 560 / 560 300 / 300 Balance 490 / 490 560 / 560 300 / 300 Lab / Micro Data 11/09/22 08:45 11/09/22 08:45 Physical Exam Narrative alert, oriented x3, no apparent distress and healthy appearing General Appearance: cooperative, well kempt and well developed Orientation / Consciousness: awake, oriented to person, oriented to place and oriented to time HEENT normocephalic and moist oral mucous membranes Eyes PERRL, EOMs intact bilaterally and conjunctivae normal Neck supple, no JVD, thyroid normal and no carotid bruits General: trachea midline Resp normal respiratory effort and clear to auscultation bilaterally Auscultation: Negative for rales, rhonchi or wheezes Cardio regular rate, regular rhythm, no murmurs, no rub and no gallops GI normal to inspection, nondistended, normoactive bowel sounds, soft to palpation, non-tender and non-distended Extremity no clubbing, cyanosis or edema Skin no rashes or lesions noted General Skin Exam: no breakdown Neuro oriented x3, CN's II-XII intact bilaterally, no focal motor deficits and no sensory deficits noted Sensorium / Orientation: awake and alert Speech: speech normal Psych affect normal Assessment & Plan Assessment/Plan (1) Polysubstance abuse: (2) Alcohol abuse: (3) Alcohol dependence: PLAN: Plan 1. Acute opiate withdrawal-again patient will be maintained on Subutex, patient should be stable to go to an inpatient detox center on Sunday #2 acute alcohol withdrawal-patient shows no sign of alcohol withdrawal at this time, he remains on phenobarbital #3 polysubstance abuse-complicates care, medical course, recovery, and prognosis Total clinical time spent by myself addressing the patient's medical issues, reviewing all of his data, and collaborating with patient's care team: 25 minutes Charges/Coding Visit Charges Inpatient E&M: 78152 Subs Hosp L1
[2022-11-12 16:00] VITALS: BP 111/75; PULSE 81; RESP 16; TEMP 36.7; O2SAT 98
[2022-11-12 21:56] VITALS: BP 105/61; PULSE 99; RESP 18; TEMP 36.8; O2SAT 96
[2022-11-13 00:55] VITALS: BP 122/83; PULSE 90; RESP 16; TEMP 36.8; O2SAT 96
[2022-11-13 03:20] VITALS: BP 128/82; PULSE 85; RESP 16; TEMP 36.8; O2SAT 97
--- NOTE | 2022-11-13 07:37 | PN.HOSP_ITS ---
Reason for Visit Reason for Visit: Diagnoses Alcohol abuse, uncomplicated (11/09/22) Alcohol dependence, uncomplicated (11/09/22) Other psychoactive substance abuse, uncomplicated (11/09/22) Subjective Subjective Patient with no acute events overnight per self or per nursing report. Denies any further withdrawal symptoms at this time with completion recently of phenobarbital per hospitalist prior and continued near completion of buprenorphine regimen. Patient this point with plan transition to an inpatient rehab setting given completion of current acute in-hospital treatment. Patient denies fevers, chills, nausea, emesis, abdominal pain, chest pain or dyspnea. Objective Data Objective Data Vital Signs: Vital Signs Temp Pulse Resp BP Pulse Ox O2 Del Method 98.2 F 85 16 128/82 H 97 Room Air 11/13/22 03:20 11/13/22 03:20 11/13/22 03:20 11/13/22 03:20 11/13/22 03:20 11/13/22 03:20 Oxygen Delivery Method Room Air Weight: 166 lb 10.711 oz Body Mass Index (BMI) 24.6 Intake & Output: Intake and Output for Last 24 Hours 11/11/22 11/12/22 11/13/22 23:59 23:59 23:59 Intake Total 560 / 560 760 / 760 240 / 240 Output Total 0 / 0 Balance 560 / 560 760 / 760 240 / 240 Lab / Micro Data 11/09/22 08:45 11/09/22 08:45 Physical Exam Narrative Physical Examination: General: Awake, alert, oriented x 3 and cooperative, seated upright in PCU bed in no apparent distress. Skin: Normal color, normal turgor, no icterus, no cyanosis except for occasional staged ecchymoses. HEENT: AT/NC, EOMI, PERRLA, MMM. Lungs: CTA bilaterally, moderate effort, mild decrease BL bases, no rales, ronchi or wheezing. Heart: Regular rate and rhythm; no gallop, rub audible. Abdomen: Soft, NTTP, ND, normal BS. Extremities: No cyanosis, clubbing, or edema. Neurological: Patient awake, alert, oriented as noted, cognitive function intact; pupils equally reactive to light and accommodation, cranial nerves II- XII grossly normal, moving all 4 extremities, no focal deficits, strength preserved, no evidence of any withdrawal symptoms currently. Psychiatric: Affect appears normal, amenable to plan for transition to inpatient setting, no acute evidence of depressive or anxiety feelings. Assessment & Plan Assessment/Plan (1) Polysubstance abuse: (2) Alcohol dependence: PLAN: Plan The patient is a 57 y/o M w/ PMHx: Hx SBO s/p bowel resection prior, Tobacco use, EtOH abuse with history of associated seizures, Polysubstance abuse who presents to the [facility] ED on 11/09/22 with acute opiate and acute EtOH withdrawal. #1. Acute EtOH Withdrawal with history of associated seizures: Admitted to medical surgical floor, given interest in sobriety, initiated and continued on protocol with taper course of Phenobarbital, scheduled gabapentin for seizure prophylaxis, as needed Catapres, Bentyl, Vistaril, IV fluids, IV antiemetics, Tylenol as needed for pain. Will consult Case management for assistance for transition to next level of rehabilitation care. Mag, phos pending. Maintain on CIWA protocol concurrently. #2. Polysubstance Abuse, Chronic w/ Acute Opiate Withdrawal: UDS with positive opiates, amphetamine, methamphetamine and cannabis. Initiated and continued on protocol with tapering course of Subutex, as needed tylenol, ibuprofen, bowel regimen, gabapentin, Bentyl, Vistaril, methocarbamol, clonidine, PRN nightly trazodone for insomnia, IV fluids, IV antiemetics. Once patient clinically improved and completion of taper nearing will plan consultation with case management for transition to next level of rehabilitation care. Will obtain HIV, RPR and hepatitis panel given significant polysubstance use history. Patient currently not candidate for hep C treatment currently as needs to be clean, sober x 6 months, documented attendance NA or AA meetings, counseling and ongoing negative drug screens. #3. Tobacco use: Encourage tobacco cessation, RT consulted for education, NR ordered. #4. History SBO: Status post bowel resection, resolved. #5. DVT Prophylaxis: Low risk, encourage ambulation. Charges/Coding Visit Charges Inpatient E&M: 10969 Init Hosp L2
[2022-11-13 09:09] LABS: Magnesium 2.1 mg/dL (1.6-2.6)
[2022-11-13 09:37] LABS: HIV - WCH Non-Reactive (Nonreactive); Syphilis Antibodies Non-reactive
--- NOTE | 2022-11-13 09:49 | PCM.DC ---
Discharge Instructions Diet Discharge Diet: No restrictions Activity Discharge Activity: Return to Normal Activity Dressing / Incision Call your doctor if you observe: Numbness or Tingling, Inability to urinate, Inability to have a bowel movement, Shortness of breath, Dizziness, Swelling in the ankles, Chest pain, Increased palpitations (irregular heartbeat) and Uncontrolled pain Follow Up Care Test Results: Test results from this visit will be discussed in further detail at your follow-up appointment, if applicable. Discharge Plan Admission Admit Date/Time: 11/09/22 10:59 Primary Reason for Your Visit: Opiate abuse/Polysubstance abuse, EtOH abuse Attending Provider: Katherine Cartagena Primary Care Provider: [facility],[place] Consulting Providers: Mannie Campbell Discharge Orders/Prescriptions Prescriptions: New folic acid 1 mg Tablet 1 mg PO DAILY@0800 30 Days Qty: 30 0RF thiamine HCl (vitamin B1) [Vitamin B-1] 100 mg Tablet 100 mg PO DAILYCM 30 Days Qty: 30 0RF No Action NK [facility] - (Follow-up within 1-2 weeks to review admission and assist with [facility] programs for [facility].) Disposition Disposition (needs filled in before D/C Order can be placed): Home, Self Care
--- NOTE | 2022-11-13 09:49 | PCM.DC.SUM ---
Providers Date of Admission: 11/09/22 Date of Discharge: 11/13/22 Primary Care Physician: [facility] Reason For Visit: OPIOID DETOX / ALCOHOL DETOX Diagnosis Discharge Diagnosis (1) Polysubstance abuse: Status: Acute Code(s): F19.10 - Other psychoactive substance abuse, uncomplicated (2) Alcohol dependence: Status: Acute Code(s): F10.20 - Alcohol dependence, uncomplicated Plan: Discharge Diagnoses: #1. Acute EtOH Withdrawal with history of associated seizures #2. Polysubstance Abuse, Chronic w/ Acute Opiate Withdrawal #3. Tobacco use #4. History SBO Medications at Discharge Home Medications NK 02/27/20 folic acid 1 mg tablet 1 mg PO DAILY@0800 30 days #30 tabs 11/13/22 thiamine HCl (vitamin B1) 100 mg tablet (Vitamin B-1) 100 mg PO DAILYCM 30 days #30 tabs 11/13/22 Hospital Course Operations None Procedures None Summary of Care Provided Minutes Spent on Discharge: 35 Hospital Course: The patient is a 57 y/o M w/ PMHx: Hx SBO s/p bowel resection prior, Tobacco use, EtOH abuse with history of associated seizures, Polysubstance abuse with opiates included who presented to the [facility] ED on 11/09/22 with acute opiate and acute EtOH withdrawal. Admitted to medical surgical floor, given interest in sobriety, initiated and continued on protocol with taper course of Phenobarbital, scheduled gabapentin for seizure prophylaxis, as needed Catapres, Bentyl, Vistaril, IV fluids, IV antiemetics, Tylenol as needed for pain. Will consult Case management for assistance for transition to next level of rehabilitation care. Mag, phos obtained and normal level. Maintain on CIWA protocol concurrently. UDS with positive opiates, amphetamine, methamphetamine and cannabis. Initiated and continued on protocol with tapering course of Subutex. Prior to discharge obtained HIV and RPR which were nonreactive, hepatitis panel pending at discharge and discussed that could be reviewed with [facility] setting complete. Encourage tobacco cessation during admission. Patient clinically improved, completed subutex and phenobarbital tapers. Discharged to outpatient rehab facility for ongoing evaluation and treatment. Recommended early [facility] with [facility]. Weight / BMI Weight Weight: 166 lb 10.711 oz Body Mass Index (BMI) 24.6 ABG / Lab / Microbiology Data 11/09/22 08:45 11/09/22 08:45 Laboratory: Laboratory Results - last 24 hr 11/13/22 08:21: Phosphorus 3.0, Magnesium 2.1, Syphilis Total Ab Non-reactive, HIV 1&2 Antibody Non-Reactive D/C Instructions Discharge Diet: No restrictions Call your doctor if you observe: Numbness or Tingling, Inability to urinate, Inability to have a bowel movement, Shortness of breath, Dizziness, Swelling in the ankles, Chest pain, Increased palpitations (irregular heartbeat) and Uncontrolled pain Meaningful Use Info Meaningful Use Diagnoses (Choose all that apply): None applicable Discharge Plan Admission Admit Date/Time: 11/09/22 10:59 Primary Reason for Your Visit: Opiate abuse/Polysubstance abuse, EtOH abuse Attending Provider: Katherine Cartagena Primary Care Provider: [facility],[place] Consulting Providers: Mannie Campbell Discharge Orders/Prescriptions Prescriptions: New folic acid 1 mg Tablet 1 mg PO DAILY@0800 30 Days Qty: 30 0RF thiamine HCl (vitamin B1) [Vitamin B-1] 100 mg Tablet 100 mg PO DAILYCM 30 Days Qty: 30 0RF No Action NK Referrals / Follow [facility]: [facility]] - (Follow-up within 1-2 weeks to review admission and assist with [facility] programs for substance abuse/EtOH abuse.) Disposition Disposition (needs filled in before D/C Order can be placed): Home, Self Care Charges/Coding Visit Charges Inpatient E&M: 32381 Disch Hosp >30min
[2022-11-13 09:57] LABS: Hepatitis B Surface Antibody Non-Reactive; Hepatitis B Surface Antigen Non-Reactive (Nonreactive); Hepatitis C Antibody Non-Reactive (Nonreactive)
--- NOTE | 2022-11-13 10:27 | PHA.DC.MR.R ---
Pharmacy [place] Med Reconciliation Pharmacy Service has performed discharge medication reconciliation for this patient. The patient's discharge medication list was reviewed for discrepancies and discrepancies were resolved. Medications at Discharge Home Medications NK 02/27/20 folic acid 1 mg tablet 1 mg PO DAILY@0800 30 days #30 tabs 11/13/22 thiamine HCl (vitamin B1) 100 mg tablet (Vitamin B-1) 100 mg PO DAILYCM 30 days #30 tabs 11/13/22
[2022-11-13 12:00] VITALS: BP 116/75; PULSE 80; RESP 16; TEMP 36.1; O2SAT 98
== END 2022-11-13 12:03 | disposition home or self-care (01) | DRG 773 ==
LOC: ED 09:41 → PCU 11:31
PROVIDERS: Admitting Provider Internal Medicine; Emergency Provider Emergency Medicine; Visit Provider Family Medicine
DX: F11.23 Opioid dependence with withdrawal (principal); F10.239 Alcohol dependence with withdrawal, unspecified; F15.10 Other stimulant abuse, uncomplicated; F17.210 Nicotine dependence, cigarettes, uncomplicated; F12.90 Cannabis use, unspecified, uncomplicated; G47.00 Insomnia, unspecified; Y90.0 Blood alcohol level of less than 20 mg/100 ml
CPT/HCPCS: 36415; 80053; 82077; 83735; 84100; 85027; 86703; 86706; 86780; 86803; 87340; 99284; 99406; A4216